=== PATIENT | female | born 1975 | race Caucasian/White ===

== ENCOUNTER 2020-06-25 07:39 | Emergency (ER) | payer BC ==
[2020-06-25 08:15] VITALS: BP 137/87; PULSE 103; TEMP 98.7; BMI 43.7
[2020-06-25] MEDS ORDERED: METHOCARBAMOL 500 MG TABLET PO ONE (08:17)
[2020-06-25] MEDS ORDERED: KETOROLAC TROMETHAMINE 60 MG/2 ML VIAL IM ONE (08:17)
[2020-06-25] MEDS ORDERED: METHOCARBAMOL 500 MG TABLET ONE (08:25)
[2020-06-25] MEDS ORDERED: KETOROLAC TROMETHAMINE 60 MG/2 ML VIAL ONE (08:26)
== END 2020-06-25 09:17 | disposition home or self-care (01) ==
LOC: JER 07:39
PROC: 3E0233Z Introduction of Anti-inflammatory into Muscle, Percutaneous Approach (ICD-10-PCS; principal; 2020-06-25)
DX: M43.6 Torticollis (principal); M62.838 Other muscle spasm; M62.830 Muscle spasm of back
CPT/HCPCS: 72050-TC-FY; 99284-25